=== PATIENT | female | born 1980 | race Caucasian/White ===

== ENCOUNTER 2017-01-07 10:05 | Observation (INO) | payer OTHER ==
[~2017-01-07 10:05] MED LIST: DEXTROSE 5% IV PRN; GENTAMICIN SULFATE IV PRN; LIDOCAINE HCL/EPINEPHRINE 30 ML VIAL IJ PRN; WATER IV PRN; metroNIDAZOLE/SODIUM CHLORIDE 500 MG/100 ML BAG IV PRN
[2017-01-07 10:28] LABS: Hematocrit 37.8 % (37.0-47.0); Mean Cell Volume 81.6 fl (78-100); Mean Corpuscular Hemoglobin 25.9 pg (27-31); Mean Corpuscular Hgb Conc 31.7 g/dl (32-36); Mean Platelet Volume 9.4 fl (6.0-9.5); Neutrophil # 6.2 K/mm3 (1.3-6.0); Neutrophil % 63.8 % (42-75.0); Platelet Count 395 K/mm3 (150-450); Red Blood Count 4.63 M/mm3 (4.2-5.4); White Blood Count 9.7 K/mm3 (4.0-10.5)
[2017-01-07 10:49] LABS: Albumin * 4.1 gm/dl (3.4-5.0); Anion Gap 14.4 mmol/L (6.8-13.8); BUN/Creatinine Ratio 10.9 (9.0-21.6); Bilirubin, Total 1.1 mg/dL (0.0-1.1); Ca. Corrected For Albumin 8.7 mg/dL (8.4-10.2); Calcium * 9.1 mg/dL (7.9-10.9); Carbon Dioxide 26.9 mmol/L (24-32.6); Potassium 4.3 mmol/L (3.4-4.6); Total Protein 7.8 gm/dL (6.2-8.2)
[2017-01-07] MEDS ORDERED: RINGERS SOLUTION,LACTATED 1,000 ML IV ONE (11:00)
[2017-01-07] MEDS: RINGERS SOLUTION,LACTATED 1,000 ML IV ONE ×3 (12:15→22:59)
[2017-01-07 14:27] LABS: Hematocrit 32.5 % (37.0-47.0); Hemoglobin 10.4 gm/dL (12.5-16.0)
[2017-01-07] MEDS: RINGERS SOLUTION,LACTATED 1,000 ML IV PRN ×2 (14:30→19:33)
[2017-01-07] MEDS ORDERED: RINGERS SOLUTION,LACTATED 1,000 ML IV PRN (17:01)
[2017-01-07] MEDS ORDERED: oxyCODONE HCL 5 MG TABLET PO PRN (17:02)
[2017-01-07] MEDS ORDERED: diphenhydrAMINE HCL 50 MG/ML VIAL IV PRN (17:10)
[2017-01-07] MEDS ORDERED: PROMETHAZINE HCL 12.5 MG in DEXTROSE 5 % IN WATER 50 ML IV PRN ×2 (17:10)
[2017-01-07] MEDS ORDERED: NALOXONE HCL 0.4 MG/ML VIAL IV PRN (17:10)
[2017-01-07 17:21] LABS: Hematocrit 31.2 % (37.0-47.0); Mean Corpuscular Hgb Conc 32.1 g/dl (32-36); Mean Platelet Volume 9.4 fl (6.0-9.5); Neutrophil # 19.6 K/mm3 (1.3-6.0); Neutrophil % 91.1 % (42-75.0); Platelet Count 374 K/mm3 (150-450); Red Blood Count 3.85 M/mm3 (4.2-5.4); White Blood Count 21.5 K/mm3 (4.0-10.5)
[2017-01-07] MEDS ORDERED: IBUPROFEN 800 MG TABLET PO ONE (17:30)
[2017-01-07] MEDS ORDERED: WATER IV ONE ×2 (18:05)
[2017-01-07] MEDS ORDERED: GENTAMICIN SULFATE IV ONE ×2 (18:05)
[2017-01-07] MEDS ORDERED: DEXTROSE 5% IV ONE ×2 (18:05)
[2017-01-07] MEDS ORDERED: metroNIDAZOLE/SODIUM CHLORIDE 500 MG/100 ML BAG IV ONE (18:08)
[2017-01-07] MEDS ORDERED: IBUPROFEN 800 MG TABLET ONE (19:58)
--- NOTE | 2017-01-07 20:44 | OR ---
Operative Report - Dictated Report Narrative: DATE OF PROCEDURE: 01/07/2017 PROCEDURE: 1. Total laparoscopic hysterectomy and bilateral salpingectomy 2. Diagnostic cystoscopy. ANESTHESIA: General, endotracheal intubation. PREOPERATIVE DIAGNOSES: 1. Menorrhagia 2. Multiple uterine fibroids 3. Enlarged uterus 4. Anemia 5. Right ovarian simple cyst 2-3 cm 6. S/P laparoscopic cholecystectomy 7. S/P bilateral tubal ligation POSTOPERATIVE DIAGNOSES: 1. Menorrhagia 2. Multiple uterine fibroids 3. Enlarged uterus 4. Anemia 5. S/P laparoscopic cholecystectomy 6. S/P bilateral tubal ligation SURGEON: Tigre Pompa M.D. ENTEROSTOMAL NURSE: Stacey Rodríguez FINDINGS: 1. Enlarged uterus with multiple fibroids, including a large anterior fibroid 4- 5 cm in the lower uterine segment. 3. There were evidences of bilateral tubal ligations. Both ovaries and tubes were normal. There was no ovarian cyst. 3. On cystoscopy, the bladder appeared intact and bilateral ureteral jets were seen. SPECIMENS: Uterus, cervix, and both tubes (removed in one piece) DRAINS: None. URINE OUTPUT: 500 ml BLOOD LOSS: 700 ml INTRAOPARATIVE IV FLUIDS: 2950 ml COMPLICATIONS: Large blood loss DESCRIPTION OF PROCEDURE: The patient consented to the operation and was taken to the operating room. She was placed on the operating table supine. SCDs were placed on her lower extremities. General anesthesia was induced. Prophylactic antibiotics Gentamicin and Flagyl were given by IV prior to anesthesia induction. She was repositioned in the dorsal lithotomy position. Her right arm was tucked at her side under the drape. Exam under anesthesia revealed a large uterus with some degree of uterine descent and no adnexal mass. The abdomen was prepped with Chloraprep and the vagina was prepped with Betadine. She was draped in the usual sterile fashion. A time-out procedure was conducted to confirm the correct patient for the correct procedure. After time-out, a Bonds catheter was placed into the bladder. A bivalve speculum was placed into the vagina. The vagina and the cervix were prepped with Betadine one more time. The anterior cervix was grasped with a single-tooth tenaculum. The uterus was sounded to 12 cm. A large Atricaare uterine manipulator was inserted into the uterine cavity. The balloon was inflated with 5 cc of air. The single-tooth tenaculum was removed. Josephine speculum was removed. The upper VCare cup was advanced into the vagina to hug the cervix. The lower VCare cup was advanced into the vagina to align with the upper VCare cup and to provide pneumoperitoneum for the procedure. The lower VCare cup was fastened to the uterine manipulator. The surgeon then changed gloves and attention was paid to the abdomen. A small vertical incision was made at the lower edge of the umbilicus. A Veress needle was inserted into the abdominal cavity. Intraabdominal placement was confirmed with a saline drop test and with low entry pressure of 3 mmHg. The abdomen was insufflated with CO2 gas to an intraabdominal pressure of 15 mmHg. The Veress needle was removed. A 5 mm trocar with the laparoscope was inserted through the umbilicus incision into the abdomen. Intraabdominal placement was confirmed with the laparoscope. Survey of the entry site revealed no trauma to the underlying structures. Survey of the upper abdomen was unremarkable. The patient was then placed in Trendelenburg position. Three 5 mm trocars were placed in the lower abdomen. Both left lower quadrant trocar and right lower quadrant trocars (5 mm) were placed superior and medial to the anterior superior iliac spine to avoid vessels and nerves. A third trocar (5 mm) was placed suprapubically in the midline. All trocars were placed under the direct visualization of the laparoscope. Survey of the pelvis revealed the findings noted above. Attention was now turned to the left side. The left fallopian tube was elevated. The mesosalpinx was divided with the Thunderbeat. The division was carried to the cornual region. The uteroovarian ligament was divided with the Thunderbeat and the division was carried on the broad ligament to the round ligament towards the lower uterine segment. The course of the left ureter was not identified, but believed to be away from the surgical field. The left uterine vessel was not skeletonized due to the large fibroid anteriorly. Attention was now turned to the right side. The right fallopian tube was elevated. The mesosalpinx was divided with the Thunderbeat. The division was carried to the cornual region. The uteroovarian ligament was divided with the Thunderbeat and the division was carried on the broad ligament to the round ligament towards the lower uterine segment. The course of the right ureter was identified and protected. The right uterine vessels were not isolated. There was a large anterior fibroid blockiing the view to the lower uterine segment. It was decided to complete the rest of procedure vaginally given some uterine descent was noted on exam. The laparoscopic instruments and laparoscopy were removed. The trocars were kept in place. The abdominal field were protected with a drape. Attention was paid the the vaginal procedure. The uterine manipulator was removed. A weighted speculum was placed into the vagina. The anterior vaginal wall was retracted with a Flanagan retractor. The cervix was grasped with a single-toothed tenaculum. The vaginocervical junction was infiltrated circumferentially with 20 ml of 0.5% lidocaine with epinephrine. A circumferential incision was made at the vaginocervical junction using a Bovie. This incision was carried down to the cervical stroma. The vesicocervical septum was dissected with a Garcia scissors and the bladder was held up with a Trista rectractor and protected. At this point, the anterior cul- de-sac had not entered. The Trista retractor was removed. Next, the cervix was elevated anteriorly with a tenaculum. The posterior cul-de- sac was entered with a Garcia scissors. A Tamara Auvard weighted speculum was placed into posterior cul-de-sac. The left uterosacral ligament was clamped with a Z-clamp, divided and suture ligated to the vaginal wall with 0 Vicryl suture and held in place to ce the left vaginal cuff corner. The right uterosacral ligament was clamped, divided and suture ligated to the vaginal wall with 0 Vicryl suture and held in place to ce the right vaginal cuff corner. Next, the vesicocervical septum was dissected again, but the anterior cul-de- sac was difficult to enter. The left cardinal ligament complex was clamped, divided and suture ligated with O vicryl suture. The same procedure was done on the right side. Next the left uterine vessel was clamped, divided and suture ligated. There was some oozing from the area, but it was difficult to examine due to the large fibroid. The right uterine vessel was also clamped, divided and suture ligated. Again there was some oozing from this side. It was difficult to examine and secure the bleeder due to the large fibroid and limited descent. At this point, the blood loss was about 500 ml. Due to the large blood loss from this part of the procedure, it was decided to examine the bleeding laparoscopically. The vaginal instruments were removed. The uterine manipulator was replaced and the vagina was packed with moist laps to keep the pneumoperitoneum. Attention was paid back to the abdomen. The abdomen was insufflated with CO2 gas. Intraabdominally, there was some bleeding from the right uterine vessel and this was controlled with the Thunderbeat. The bleeding from the left side had stopped, but the left uterine vessel was largely intact and this was divided with the Thunderbeat. The posterior fornix had opened, but the anterior fornix had not opened yet. The Thunderbeat was used to dissect and enter the anterior vaginal fornix. The cervix now had from the vagina. The surgeon moved to the vaginal area to retrieve the specimen. The VCare uterine manipulator was removed. The cervix with the uterus and both tubes were removed through the vagina in one piece. The vagina was packed with 2 moist laps to keep the pneumoperitoneum. The surgeon then changed gloves and attention was paid back to the abdomen. The pelvis was thoroughly irrigated with saline. The vaginal opening was closed with 0 Vicryl Endoknot suture interruptedly using intracorporeal suturing technique and extracorporeal knot tying. The uterosacral ligament at each side was sutured to the vaginal cuff corner for cuff support. The pelvis was irrigated with saline. Extra fluid was suctioned out from the abdomen and pelvis. The right uterine vessel had a small oozing and an endoloop suture was placed over the right uterine pedicle. Two small pieces of surgicel was placed over bilateral uterine vessel area duo to small oozing. Pelvis was irrigated with saline and hemostasis was noted. The patient was taken out of Trendelenburg Three lower abdominal trocars were removed. The abdomen was deflated. The trocar at the umbilicus was removed with the laparoscope. The skin incision was closed with 4-0 Monocryl suture and was covered with Steri- Strips. A diagnostic cystoscopy was performed. Vaginal packing was removed and the Bonds catheter was removed. A 30-degree cystoscope was introduced through the urethra into the bladder. Exam of the bladder revealed the bladder was intact. There were urine jets coming out from the left as well as the right ureteral orifice, confirming the integrity of ureters. The cystoscope was removed. The Bonds catheter was not replaced. The patient tolerated the procedure well. All counts were correct and the patient was taken to the recovery room in stable condition. Tigre Pompa MD
[2017-01-08 05:25] LABS: Hematocrit 27.4 % (37.0-47.0); Hemoglobin 8.6 gm/dL (12.5-16.0); Mean Cell Volume 82.5 fl (78-100); Mean Corpuscular Hemoglobin 25.9 pg (27-31); Mean Corpuscular Hgb Conc 31.4 g/dl (32-36); Mean Platelet Volume 10.3 fl (6.0-9.5); Platelet Count 337 K/mm3 (150-450); Red Blood Count 3.32 M/mm3 (4.2-5.4); Red Cell Distribution Width 13.8 % (11.5-14.0); White Blood Count 18.7 K/mm3 (4.0-10.5)
[2017-01-08 05:53] LABS: Total Cells Counted 100
[2017-01-08 06:34] LABS: Hypersegmented Polys 3+; Lymphocyte 17 % (20-51); Monocyte 6 % (0-9); Neutrophil 77 % (42-75); Neutrophil # 14.4 K/mm3 (1.3-6.0); Platelet Estimate Increased (NORMAL); Toxic Granulation 2+
[2017-01-08] MEDS ORDERED: HYDROcodone/ACETAMINOPHEN 1 EACH TABLET PO ONE ×2 (09:22→12:35)
--- NOTE | 2017-01-08 09:33 | DS ---
(1) Status post laparoscopic hysterectomy Problem: Acute (2) Anemia due to blood loss Problem: Acute (3) Menorrhagia Problem: Acute (4) Fibroid uterus Problem: Acute Description of Stay: POD#1, s/p TLH, BS and cystoscopy with a large blood loss. stable. doing well. mild pain only. tolerated foods. voided. ambulating well. wants to go home. Exam: NAD Abdomen: non-distended, soft, non-tender. incisions dry and clean. ext: no edema or calf tenderness Procedures Performed: see notes below - TLH, BS, cystoscopy Discharge Disposition: Home self care Disposition: Home self-care Condition: Good Discharge Activity: Activity as tolerated - no lifting more than 5 lbs. Discharge Diet: General/regular food Complete Home Medications List: Complete Home Medication List: HYDROcodone/ACETAMINOPHEN [[place] 5-325 Tablet] 1 tab PO Q4H PRN #30 tab Ibuprofen [Motrin] 800 mg PO Q8H PRN #30 tablet 01/08/17
[2017-01-08 10:41] VITALS: BP 112/49
== END 2017-01-08 13:10 | disposition home or self-care (01) ==
LOC: AMB 10:05 → MS 17:35
PROVIDERS: ADMIT Obstetrics & Gynecology; ATTEND Obstetrics & Gynecology
PROC: 0UTC7ZZ Resection of Cervix, Via Natural or Artificial Opening (ICD-10-PCS; 2017-01-07)
PROC: 0UT7FZZ Resection of Bilateral Fallopian Tubes, Via Natural or Artificial Opening With Percutaneous Endoscopic Assistance (ICD-10-PCS; 2017-01-07)
PROC: 0TJB8ZZ Inspection of Bladder, Via Natural or Artificial Opening Endoscopic (ICD-10-PCS; 2017-01-07)
PROC: 0UT9FZZ Resection of Uterus, Via Natural or Artificial Opening With Percutaneous Endoscopic Assistance (ICD-10-PCS; principal; 2017-01-07 09:55)
DX: N92.0 Excessive and frequent menstruation with regular cycle (principal); D25.9 Leiomyoma of uterus, unspecified; N85.2 Hypertrophy of uterus; D64.9 Anemia, unspecified; N83.291 Other ovarian cyst, right side
CPT/HCPCS: 36415; 52000; 58554; 80053; 84703; 85007; 85014; 85018; 85025; 86850; 86900; 88307; 96365; G0378